=== PATIENT | female | born 1965 | race Caucasian/White ===

== ENCOUNTER 2025-03-30 21:03 | Inpatient (IN) | payer OTHER, SELFPAY ==
[2025-03-30] VITALS (8 sets, daily range): BP systolic 100–141; BP diastolic 59–83
--- NOTE | 2025-03-30 15:39 | CON.NEURO ---
Addendum entered and electronically signed by Ridge Pardo MD 03/30/25 16:41:
Studies reviewed.
I have personally examined the patient. I reviewed and agree with the REGISTERED RADIOLOGIC TECHNOLOGIST's Note.
My addenda:
Awake, alert, interactive. No acute distress.
Speech intact.
Follows 2-step requests w/o difficulty. No tremor.
Extra-ocular movements grossly intact.
Facial movements full and symmetric. Hearing intact to normal conversational volume.
Normal UE movements bilaterally.
Neck: full ROM.
Chest: no dyspnea
Heart: no JVD
Ext: (-) Clubbing, (-) Cyanosis, (-) Edema
IMPRESSIONS/RECOMMENDATIONS:
Abrupt onset of left hemibody skin sensation change with subsequently found right 2.1 cm nearly isodense to brain tissue lesion producing mass effect
Lesion either represents glioma with edema or metastasis from previously diagnosed and treated colon cancer
Initiate dexamethasone 10 mg now and 4 mg every 6 hours
Urgent evaluation by neurosurgery outside of this hospital
Start levetiracetam without load as 500 mg twice a day as it is unclear whether or not the patient's symptomatology represents shift or focal onset seizures
We will order MRI of the brain with and without contrast although the patient would probably benefit from undergoing this testing at the next facility to which she will be transferred
D/W patient / family / nursing
All questions answered.
Will continue to follow as needed.
Original Note:
Documented by User: Arelis Smith NP 03/30/25 16:29
Neuro Assessment/Plan
Assessment
Patient is a left-handed 59 year old female with a past medical history of colon cancer 3 years ago and HLD presented to [facility] on 03/30/2025 for evaluation of left sided tingling and decreased sensation.
Head CT: Findings suspicious for an approximate 2.1 cm slightly high attenuation lesion in the right frontoparietal region, most likely a mass with some mild mass effect and minimal midline shift from [id number].
Plan
Impression: abrupt onset of left-sided tingling and decreased sensation most likely due to 2 cm right frontoparietal brain mass
-obtain brain MRI with and without contrast
-start Levetiracetam 500 mg BID
-give 10mg Decadron now and 4mg every 6 hours
-transfer to [place] [facility] to evaluate brain mass
All questions encouraged and answered, plan of care discussed with Dr. Pardo, nurse, Dr. Mahoney, patient and family
Consultation
Order
Date of Consultation: 03/30/25
Requesting Provider: hospitalist/Dr. Mahoney
Reason for Consult: stroke alert
Subjective/Objective
Subjective Data
Date of Service: March 30, 2025
Patient is a left-handed 59 year old female with a past medical history of colon cancer 3 years ago and HLD presented to [facility] on 03/30/2025 for evaluation of left sided tingling and decreased sensation. At 10 am was watching her grandchild and
pushing him in the stroller when she noticed LUE,LLE and left face tingling with decreased sensation. She thought she had a pinched nerve but symptoms persisted which prompted her ER visit. Denies vision changes, dizziness or headache. Denies chest
pain or SOB. Denies issues with speech or swallowing. Denies issues with bladder/bowel. Denies difficulty with ambulation or balance. She presented to ED as stroke alert. NIHSS 0, head CT suspicious for an approximate 2.1 cm slightly high
attenuation lesion in the right frontoparietal region, most likely a mass with some mild mass effect and minimal midline shift from [id number]. Her vital signs are stable.
Objective Data
Vital Signs
Temp Pulse Resp BP Pulse Ox
98.4 F 74 16 136/83 97
03/30/25 15:25 03/30/25 15:25 03/30/25 15:25 03/30/25 15:25 03/30/25 15:25
Patient Allergies
No Known Allergies Allergy (Verified 03/30/25 15:35)
CVA Assessment
Onset of Stroke Symptoms
Onset of symptoms known: Yes
Date of onset of symptoms: 03/30/25
Time of onset of symptoms: 10:00
Time pt last seen normal is known: Yes
Date last time pt seen normal: 03/30/25
Time last time pt seen normal: 10:00
NIH Stroke Score
Level of Consciousness: 0 - Alert
LOC Questions: 0-Answers both correctly
LOC Commands: 0-Performs both correctly
Best Horizontal Gaze: 0-Normal
Visual Deng: 0=Normal, no visual loss
Facial Palsy: 0=Normal, symmetrical
Motor - Right Arm: 0=No drift 10 seconds
Motor - Left Arm: 0=No drift 10 seconds
Motor - Right Le-No drift 5 seconds
Motor - Left Le-No drift 5 seconds
Limb Ataxia: 0-Absent
Sensation: 0-Normal
Best Language: 0-No aphasia
Dysarthria: 0-Normal
Extinction and Inattention: 0-No abnormality
NIH Total Score:: 0
Tenecteplase Contraindications
Inclusion and Exclusion criteria reviewed: Yes
IAT Contraindications: NIHSS < 6 and Imaging doesn't show large vessel occlusion as cause of stroke
Modified Lincoln Score (MRS)
-
Modified Valente Scale (mRS): No significant disability. Able to carry out usual activities.
Score: 1
Review of Systems
-
History Source: Patient
Constitutional: No Symptoms
EENT: No Symptoms Reported
Respiratory: No Symptoms
Cardiac: No Symptoms
Abdomen/GI: No Symptoms
Genitourinary: No Symptoms
Musculoskeletal: No Symptoms
Skin: No Symptoms
Neuro: Other (left sided tingling)
Endocrine: No Symptoms
Hematologic / Lymphatic: No Symptoms
Allergy / Immunology: No Symptoms
Physical Exam
-
General: No Apparent Distress and Comfortable
HEENT: Normocephalic, Atraumatic and Anicteric
Neck: Full Range of Motion
Respiratory: No Dyspnea
Cardiac: No JVD
GI: Non-distended
Skin: Unremarkable
Extremities: No Clubbing, No Cyanosis and No Edema
Psych: Unremarkable
Extended Neurological Exam
Mood & Affect: Mood Unremarkable
Attention Span & Concentration: Awake, Alert and Interactive
Memory: Unremarkable
Tremor: Hand Tremor Absent
Involuntary Movement: None
Speech: Quality Unremarkable, Quantity Unremarkable and Rate of Production Unremarkable
Cranial Nerve II: Left Eye: Visual Deng Intact
Cranial Nerve II: Right Eye: Visual Deng Intact
Cranial Nerves III, IV, : Extraocular Movement: Extraocular Movement Full in all Directions
Cranial Nerve VII: Facial Symmetry: Normal Facial Symmetry
Cranial Nerve VIII: Hearing: Unremarkable Hearing to Normal Conversational Volume
Cranial Nerves IX, X: Palate Movement: Palate Elevation Symmetric
Cranial Nerve XI: Shoulder Shrug: Unremarkable
Muscle Strength, Overall: Full Throughout
Pronator Drift: No Drift in Upper Extremities and No Drift in Lower Extremities
Coordination: Apclyl-rvwh-hxhezc Testing Unremarkable and Reaches for Objects without Difficulty
Data Reviewed
-
CT Head: Report Reviewed and Image Reviewed
MRI Head: Ordered
Labs: Ordered
Reviewed with: Physician, Nurse, Patient and Family
Old Records: Summarized
Past History
Past History
ED Past Medical History: Cancer (colon cancer 3 years ago) and Hypercholesterolemia
Family/Social History
Tobacco: Non-smoker
Alcohol: None
Drug: None

Documented by User: Ridge Pardo MD 03/30/25 16:37
CVA Assessment
NIH Stroke Score
NIH Total Score:: 0
Modified Valente Score (MRS)
-
Score: 1
[2025-03-30 15:42] LABS: Glucose - Point of Care 98 mg/dl (70-99)
--- NOTE | 2025-03-30 15:58 | ED.CVA ---
History of Present Illness
General
Chief Complaint: CVA/TIA Symptoms
Source: patient and family
Exam Limitations: none
Time Seen by Provider: 03/30/25 15:35
Nursing documentation reviewed up to this point in time: agreed with
Onset of Stroke Symptoms
Onset of symptoms known: Yes
Date of onset of symptoms: 03/30/25
Time of onset of symptoms: 10:00
History of Present Illness
History of Present Illness:
Patient presents to ED secondary to sudden onset of left shoulder, left arm, and left leg numbness sensation, starting around 10 AM this morning. Patient was already awake when her symptoms started. Patient denies neck pain. Denies headache.
Denies dizziness. Denies blurred vision. Denies difficulty with speech. Denies difficulty with ambulation. Denies previous history of similar symptoms.
Review of Systems
Review of Systems
Allergies reviewed?: Yes
All Other Systems: ROS reviewed and negative except as documented in HPI and ROS
Constitutional: Reports no symptoms
Respiratory: Reports no symptoms
Cardiac: Reports no symptoms
ABD/GI: Reports no symptoms
Musculoskeletal: Reports no symptoms
Skin: Reports no symptoms
Neurological: Reports numbness; Denies dizzy, headache or weakness
Phy Exam
Physical Exam
Physical Exam:
Physical Exam
General: mild distress, not acutely ill. afebrile
Head: nc/at. eomi
Neck: supple. normal range of motion.
Heart: s1/s2 regular rate and rhythm
Lungs: no acute respiratory distress. clear bilaterally
Abdomen: normal bowel sounds. not tender.
Neuro: alert and oriented x 3. no focal neurological deficits. normal speech
Skin: no rash
Psychiatric: well kept. interactive and cooperative
Extremities: no edema. no calf tenderness.
Course
Orders/Labs/Results
Orders:
Orders
03/30/25 Dinner
Regular
At Your Request: Full Participation
03/30/25 15:41
CT HEAD STROKE ALERT W/o Cont Urgent
Comment:
Reason For Exam: left sided numbness/tingling sensation
03/30/25 15:43
Electrocardiogram (*1) Urgent
Reason for Study: TIA/Stroke
EKG- Treatment ONCE
03/30/25 15:50
Levetiracetam Injectable [Keppra] 500 mg IV NOW STA
03/30/25 15:54
CRP [C-Reactive Protein] Routine
Comment: May add to blood in lab
Complete Blood Count/No Diff Urgent
Comprehensive Metabolic Panel Urgent
Erythrocyte Sed Rate Routine
Comment: may add to blood in lab
Ferritin Routine
Folate Routine
Comment: May add to blood in lab
Magnesium Urgent
TSH Reflex To Free T4 Routine
Comment: May add to blood in lab
Vitamin B12 Routine
Comment: May add to blood in lab or draw as routine
03/30/25 16:09
Dexamethasone Sod Phosphate [Decadron] 10 mg IV NOW STA
03/30/25 20:39
Admit/Transfer Patient As Directed
Co-Sign Provider:
Level of Care: Inpatient admission
Assign to:: Medical/Surgical
Physician / Group: lashawn milner
Diagnosis: new Brain mass
Reason for Hospitalization: new Brain mass
Expected length of stay greater than two midnights?: Yes
ELOS- Estimated Length of Stay in days: 3
I certify the patient meets the requirements for IP care: Yes
Code Status As Directed
Resuscitation Status: Full Code
NEUROLOGY CONSULT Routine
Consulting Provider: Ridge Pardo
Was physician already notified: Yes
Reason for consult: Left-sided numbness, new brain mass on CT
03/30/25 20:41
PRN Pain Medication Management As Directed
May give lesser potent ordered pain med per pt: Yes
preference::
Protocol:: Medication orders for pain may be administered in a
manner that supports deferring to patient preference
when the pt is:
- Requesting an ordered lesser potent pain medication.
Least to most potent pain medications are defined
as: acetaminophen < NSAID < tramadol < opioids
(morphine, oxycodone, hydromorphone).
- Requesting a lesser dose of the same medication IF
ORDERED.
- Requesting a less intrusive route of administration
if both routes are prescribed by the provider (PO <
IV).
03/30/25 21:36
Acetaminophen [Tylenol] 650 mg PO Q4HPRN PRN
03/30/25 21:36
Activity As Directed
Activity Level: As Tolerated
Pneumatic Compression Sleeves As Directed
Type: Knee high
Vital Signs As Directed
Frequency: Per unit guidelines
Pt Eval And Treat Routine
Activity Level: As Tolerated
DX Deep Vein Thrombosis Video Routine
03/31/25 00:00
Dexamethasone Sod Phosphate [Decadron] 4 mg IV Q6H
03/31/25 06:00
Complete Blood Count/With Diff IN AM
Comprehensive Metabolic Panel IN AM
03/31/25 08:00
Levetiracetam Injectable [Keppra] 500 mg IV Q12
03/31/25 18:00
Rosuvastatin Calcium [Crestor] 5 mg PO QPM
04/01/25 06:00
Complete Blood Count/With Diff IN AM
Comprehensive Metabolic Panel IN AM
04/02/25 06:00
Complete Blood Count/With Diff IN AM
Comprehensive Metabolic Panel IN AM
Abnormal Lab Results
03/30/25
15:54
BUN 18 H mg/dl
(7-17)
Glucose 101 H mg/dl
(70-99)
03/30/25 15:54
03/30/25 15:54
Vital Signs
Initial and Last Documented VS:
Initial Vital Signs
Temp Pulse Resp BP Pulse Ox
98.4 F 74 16 136/83 97
03/30/25 15:25 03/30/25 15:25 03/30/25 15:25 03/30/25 15:25 03/30/25 15:25
Last Documented Vital Signs
Temp Pulse Resp BP Pulse Ox
98.4 F 81 19 114/83 96
03/30/25 15:25 03/30/25 22:33 03/30/25 22:33 03/30/25 21:00 03/30/25 22:33
MDM/Problems Addressed
MDM/Problems Addressed:
Stroke alert activated during triage. Patient evaluated at bedside by Dr. Pardo. CT head ordered. Unfortunately, CT head reveals what appears to be likely right-sided mass.
Dr. Pardo recommends transfer to neurosurgery service for further evaluation, especially in light of midline shift. Dexamethasone ordered. Patient and family agree with plan to transfer to [facility].
Transfer consent on the chart.
Discussed with [facility], , who agreed to accept transfer.
Unfortunately, received information from [facility] As such, request that patient to be admitted at [facility] tonight with plan to transfer patient when bed
becomes available.
.
*Pulse Oximetry
SaO2: 97
Oxygen Mode of Delivery: Room air
Patient hypoxic: no
*Critical Care Note
Total Time (30-74mins, 75-104mins- exclusive of procedures): Not Applicable
ED Attending Note
-
Portions of this chart may have been created with voice recognition software.� Occasional wrong word or��sound alike� substitutions may have occurred due to the inherent limitations of voice recognition software.
Discharge Plan
Departure
Patient Disposition: Admit
Date of Disposition: 03/30/25
Time of Disposition: 16:32
Admit to: Telemetry
Presentation/result/management discussed w/ accepting MD/DO: Hospitalist
Discharge Problem:
Mass of brain
Interventions
Interventions:
*Risk Screen - Suicide Last Done: 03/30/25 15:37
*General Assessment Last Done: 03/30/25 15:37
*Neglect/Abuse Screening Last Done: 03/30/25 15:37
*ED- Fall Risk Assessment Last Done: 03/30/25 15:37
*ED COVID-19 Vaccine History Last Done: 03/30/25 15:37
ED- Pulmonary Assessment Last Done: 03/30/25 15:46
ED- Neurological Assessment Last Done: 03/30/25 20:08
ED- Cardiac Assessment Last Done: 03/30/25 15:53
ED Swallowing Screen Last Done: 03/30/25 19:50
[2025-03-30] MEDS: KEPPRA 500 MG IV (16:14)
[2025-03-30 16:20] LABS: Hematocrit 40.5 % (37.0-47.0); Hemoglobin 13.4 g/dL (12.0-16.0); Mean Corp Hgb Conc. 33.1 g/dL (33.0-37.0); Mean Corpuscular Volume 92.0 fL (81.0-99.0); Platelet Count 375 10^3/uL (130-400); Red Cell Dist. Width 13.2 % (11.5-14.5)
[2025-03-30] MEDS: DECADRON 10 MG IV (16:22)
[2025-03-30 16:26] LABS: ALT (SGPT) 22 U/L (0-35); AST (SGOT) 27 U/L (14-36); Albumin 4.9 g/dl (3.5-5.0); Alkaline Phosphatase 89 U/L (38-126); Blood Urea Nitrogen 18 mg/dl (7-17); Calcium 10.1 mg/dl (8.4-10.2); Carbon Dioxide 25 mmol/L (22-30); Chloride 103 mmol/L (98-107); Glucose 101 mg/dl (70-99); Magnesium 2.1 mg/dl (1.6-2.3); Potassium 3.8 mmol/L (3.5-5.1); Sodium 139 mmol/L (135-145); Total Protein 7.6 g/dl (6.3-8.2); eGFR > 60.00
[2025-03-30 16:46] LABS: C-Reactive Protein < 5.00 mg/L (0.0-10.00)
[2025-03-30 17:21] LABS: Ferritin 27.9 ng/ml (11.1-264.0)
[2025-03-30 17:52] LABS: Folate 8.2 ng/ml (2.76-20); Vitamin B12 327 pg/ml (239-931)
--- NOTE | 2025-03-30 19:58 | HPS.HSE ---
Family Physician
-
Family Physician: * NONE
Chief Complaint
-
Left arm numbness tingling, left leg numbness tingling
History of Present Illness
59-year-old female who states she was doing arm exercises with no weights for approximate 30 minutes she started feeling a tightening sensation in the back of her neck with tingling down her left arm. She then decided to take her grandchild whom
she was watching for a walk she reports she started feeling tingling down the left side of her arm and leg like [id number] which was getting worse she returned home and called her daughter who is a nurse who came over to the house I
recommended she go to the ER for evaluation. In the ER a stroke alert was called she was seen by neurology at bedside had stat CT showing new 2.1 cm right frontoparietal region mass patient reports on Sunday while getting her [employer] license
from [place] she had to retest her vision. She reports she was wearing her contacts and noticed that on the right side of the screen and the distance she was having difficulty reading the line however the person passed her. She denies headache,
current blurred vision, facial droop, bilateral upper or lower leg weakness, fever, chills chest pain, palpitations, cough, shortness of breath, abdominal pain, nausea, vomiting, diarrhea, urinary symptoms. She has Past medical history colon
cancer/polyp status post colectomy 2021, HLD, migraine headaches
Medical History
Past Medical History
Past Medical History: Reports Other
Additional Past Medical History:
colon cancer/polypectomy status post colectomy
HLD
migraine headaches
Past Surgical History: Reports Other
Additional Past Surgical History:
Colectomy secondary to colon cancer
Appendectomy
section
Social History
Tobacco: Non-smoker
Alcohol: None
Personal:
Living: With Family ()
Family History
Family History: Other (Maternal grandmother history of colon cancer and leukemia age 70 mother from complications of RSV, father prostate cancer)
Allergies / Home Medications
Allergies reflects when Allergies were last updated in [employer]
Home Medications with original date entered in [employer]
Allergy/Medication List:
Allergies
Allergy/AdvReac Type Severity Reaction Status Date / Time
No Known Allergies Allergy Verified 03/30/25 15:35
Home Medications
Lactobac no.2-Bifidobac no.1-S. thermo 112.5 billion cell capsule (Visbiome) 1 cap PO DAILY 03/30/25
[id number]-u-lrlgblxihafgv 400 unit tablet (Beano) 400 unit PO QPM 03/30/25
cinnamon bark 500 mg capsule (Cinnamon) 500 mg PO DAILY 03/30/25
ibuprofen 200 mg tablet (Advil) 400 mg PO DAILYPRN PRN MILD PAIN 03/30/25
milk thistle 150 mg capsule 150 mg PO QPM 03/30/25
rosuvastatin 5 mg tablet (Crestor) 5 mg PO QPM 03/30/25
Review of Systems
-
History Source: Patient and Family ( at bedside)
A 12 point ROS was completed and negative except as noted: Yes
Constitutional: Denies Fever or Chills
EENT: Denies Sore Throat or Runny Nose
Respiratory: Denies Cough or Trouble Breathing
Cardiac: Denies Chest Pain, Diaphoresis, Palpitations or Syncope
Abdomen/GI: Denies Abdominal Pain, Nausea, Vomiting, Diarrhea, Constipated or Bloody Stools
: Denies Dysuria, Frequency, Flank Pain, Incontinence, Difficulty Voiding or Urgency
Musculoskeletal: Denies Joint Pain or Edema
Skin: Denies Itching or Rash
Neurological: Reports Numbness (Left side arm, left leg); Denies Dizzy, Headache or Weakness
Endocrine: Reports No Symptoms
Hematologic/Lymphatic: Reports No Symptoms
Psych: Reports Calm
Physical Exam
Vital Signs
Vital Signs
Temp Pulse Resp BP Pulse Ox
98.4 F 82 16 100/59 96
03/30/25 15:25 03/30/25 19:45 03/30/25 19:45 03/30/25 19:00 03/30/25 19:45
Physical Exam
General: Conversant; No Pain, Fever or Chills
HEENT: NormoCephalic, Anicteric, Moist mucous membranes, PERRLA, [place] Conjunctivae, No Ptosis and Neck Nontender
Respiratory: Clear; No Wheezes, Rales or Rhonchi
Cardiac: S1/S2 and Regular Rhythm; No Murmur, Rub, Gallop or Peripheral Edema
Breast: Deferred by me
GI: Soft, Non Tender, Non Distended, Normal Bowel Sounds and No Hepatosplenomegaly
Rectal: Deferred by Provider
Genito-urinary: Deferred by me
Musculoskeletal: No Clubbing, No Cyanosis and No Edema
Skin: Warm and Dry; No Rash
Neuro: AO x 3, No Motor Deficits, Nonfocal/grossly intact, Cranial Nerves Intact, No Sensory Deficits and DTR's Intact & Symmetrical; No Slurred Speech, Facial Droop, Tremors or Sedated
Psych: Calm
Laboratory Results
-
03/30/25 15:54
03/30/25 15:54
Laboratory Results
Total Bilirubin 0.9 mg/dl (0.2-1.3) 03/30/25 15:54
AST 27 U/L (14-36) 03/30/25 15:54
ALT 22 U/L (0-35) 03/30/25 15:54
Alkaline Phosphatase 89 U/L (38-126) 03/30/25 15:54
Data Reviewed
-
CT Scan: Report Reviewed by me
Lab Data: Labs Reviewed by me
Impression/Plan
-
Impression/plan:
Admit to MedSurg
#New brain mass
-IV Decadron 10 mg now followed by Decadron 4 mg every 6 hours
-Keppra 500 mg loading then 500 mg IV every 12 hours
-Patient is excepted at [facility] Dr. Grey but no beds are available
CT head:Findings suspicious for an approximate 2.1 cm slightly high attenuation lesion in the right frontoparietal region, most likely a mass with some mild mass effect and minimal midline shift from [id number].
#Colon cancer/polyp status post small section colectomy 2021 with 22 negative lymph nodes
#HLD
Continue Crestor 5 mg every afternoon
#Migraine headaches patient reports has not had a migraine in greater than 10 years
Hold Advil
DVT prophylaxis
SCDs
Full code
--- NOTE | 2025-03-30 20:01 | W.PN.UPDATE ---
Update Note
Progress Note Update
Patient seen in conjunction with ANESTHESIOLOGIST ATTENDING. I agree with the findings and physical. I concur with assessment and plan unless stated otherwise.
This is a 59-year-old female with past medical history significant for hyperlipidemia who presents to the emergency department with sudden onset of left-sided numbness that started around 10 AM. There was no associated weakness, lightheadedness
dizziness palpitations or chest pain nausea vomiting or diaphoresis. He denied having any headache. He denied having any vertigo. He denied any prior such episodes.
In the emergency department she had a nonfocal logical exam.
Vital signs were stable to blood pressure was 100/60 pulse of 82 and satting 99% on room air. ECG shows a normal sinus rhythm at rate of 78 without any ischemic changes. Her troponin was negative. TSH was unremarkable. Her electrolytes BUN and
creatinine were all in the normal range. CBC was unremarkable. She had a CT of the head showing findings suspicious for an approximate 2.1 cm slightly high attenuation lesion in the right frontoparietal region most likely a mass with some mild
mass effect and minimal midline shift from right to left.
Assessment and plan
Symptoms and imaging consistent with a new intracranial mass with vasogenic edema and minimal to mild mass effect.
- Admit to [facility]
- MRI brain
- Started on IV Decadron continue with IV Decadron every 6 for vasogenic edema
- Keppra 500 mg twice daily
-Analgesics and antiemetics as needed
- Case was discussed with neurology, patient transferred to [place] (accepted by Dr. Grey) however she is going to be here pending availability of bed
DVT PPX - lovenox sq
Code Status - Full code
[2025-03-31] VITALS (7 sets, daily range): BP systolic 102–129; BP diastolic 65–88; BMI 22.2
[2025-03-31] MEDS: DECADRON 4 MG IV ×5 (00:01→23:20)
[2025-03-31 07:56] LABS: Hematocrit 41.6 % (37.0-47.0); Hemoglobin 13.7 g/dL (12.0-16.0); Mean Corp Hgb Conc. 32.9 g/dL (33.0-37.0); Mean Corpuscular Volume 90.8 fL (81.0-99.0); Nucleated Red Blood Cells % 0 %; Platelet Count 377 10^3/uL (130-400); Red Cell Dist. Width 13.1 % (11.5-14.5)
[2025-03-31 08:22] LABS: ALT (SGPT) 20 U/L (0-35); AST (SGOT) 24 U/L (14-36); Albumin 4.6 g/dl (3.5-5.0); Alkaline Phosphatase 86 U/L (38-126); Blood Urea Nitrogen 17 mg/dl (7-17); Calcium 10.1 mg/dl (8.4-10.2); Carbon Dioxide 24 mmol/L (22-30); Chloride 107 mmol/L (98-107); Estimated Creatinine Clearance 81 ml/min; Glucose 133 mg/dl (70-99); Potassium 4.5 mmol/L (3.5-5.1); Sodium 140 mmol/L (135-145); Total Protein 7.1 g/dl (6.3-8.2); eGFR > 60.00
--- NOTE | 2025-03-31 09:20 | W.PN.NEURO.1 ---
Addendum entered and electronically signed by Ridge Pardo MD 03/31/25 13:33:
Studies reviewed.
I have personally examined the patient. I reviewed and agree with the SCENIC ARTIST's Note.
My addenda:
Awake, alert, interactive. No acute distress.
Speech intact.
No tremor.
Extra-ocular movements grossly intact.
Facial movements full and symmetric. Hearing intact to normal conversational volume.
Normal UE movements bilaterally.
Neck: full ROM.
Chest: no dyspnea
Heart: no JVD
Ext: (-) Clubbing, (-) Cyanosis, (-) Edema
IMPRESSIONS/RECOMMENDATIONS:
Abrupt onset of left hemibody sensory change with prior history of colon cancer
Continue high-dose steroids in the form of dexamethasone after loading dose of 10 mg, continue 4 mg every 6 hours
Discontinue levetiracetam as it is not clear that the patient is having focal onset seizures at this time
Transfer to neurosurgically capable facility as the patient had mass effect on plain CT of head
Check MRI of brain if patient is not to be transferred immediately
D/W patient / family
All questions answered.
Will continue to follow peripherally.
Original Note:
Today's Communication / Plan
-
-obtain brain MRI with and without contrast as planned
-discontinue Levetiracetam 500 mg BID
-continue Decadron 4mg every 6 hours
-awaiting transfer to neurosurgery to evaluate brain mass, unable to go to [place] due to insurance
Neuro Assessment/Plan
Assessment
Patient is a left-handed 59 year old female with a past medical history of colon cancer 3 years ago and HLD presented to [facility] on 03/30/2025 for evaluation of left sided tingling and decreased sensation.
Head CT: Findings suspicious for an approximate 2.1 cm slightly high attenuation lesion in the right frontoparietal region, most likely a mass with some mild mass effect and minimal midline shift from [id number].
Brain MRI: pending
Plan
Impression: abrupt onset of left-sided tingling and decreased sensation most likely due to 2 cm right frontoparietal brain mass
-obtain brain MRI with and without contrast as planned
-discontinue Levetiracetam 500 mg BID
-continue Decadron 4mg every 6 hours
-awaiting transfer to neurosurgery to evaluate brain mass, unable to go to [place] due to insurance
All questions encouraged and answered, plan of care discussed with Dr. Pardo, nurse, Dr. Knox, patient and family
Subjective/Objective
Subjective Data
Date of Service: March 31, 2025
No acute overnight events. Patient is experiencing less tingling but still has decreased sensation to her left side. No new neurologic symptoms noted.
Objective Data
Vital Signs
Temp Pulse Resp BP Pulse Ox
97.8 F 61 16 112/69 99
03/31/25 07:37 03/31/25 07:37 03/31/25 07:37 03/31/25 07:37 03/31/25 07:37
Lab Results
03/31/25 07:37
03/31/25 07:37
Sodium 140 mmol/L (135-145) 03/31/25 07:37
Potassium 4.5 mmol/L (3.5-5.1) 03/31/25 07:37
BUN 17 mg/dl (7-17) 03/31/25 07:37
Glucose 133 mg/dl (70-99) H 03/31/25 07:37
Calcium 10.1 mg/dl (8.4-10.2) 03/31/25 07:37
Vitamin B12 327 pg/ml (239-931) 03/30/25 15:54
Patient Allergies
No Known Allergies Allergy (Verified 03/30/25 15:35)
Physical Exam
-
General: No Apparent Distress and Comfortable
HEENT: Normocephalic, Atraumatic and Anicteric
Neck: Full Range of Motion
Respiratory: No Dyspnea
Cardiac: No JVD
GI: Non-distended
Skin: Unremarkable
Extremities: No Clubbing, No Cyanosis and No Edema
Psych: Unremarkable
Extended Neurological Exam
Mood & Affect: Mood Unremarkable
Attention Span & Concentration: Awake, Alert and Interactive
Memory: Unremarkable
Tremor: Hand Tremor Absent and Head Tremor Absent
Involuntary Movement: None
Speech: Quality Unremarkable, Quantity Unremarkable and Rate of Production Unremarkable
Cranial Nerve VII: Facial Symmetry: Normal Facial Symmetry
Cranial Nerve VIII: Hearing: Unremarkable Hearing to Normal Conversational Volume
Cranial Nerves IX, X: Palate Movement: Palate Elevation Symmetric
Cranial Nerve XI: Shoulder Shrug: Unremarkable
Muscle Strength, Overall: Full Throughout
Coordination: Reaches for Objects without Difficulty
[2025-03-31] MEDS: VITAMIN B-12 100 MCG PO (09:43)
--- NOTE | 2025-03-31 12:32 | CM ---
Addendum entered by Esha Loredo RN 03/31/25 15:36:
UR obtained information from [employer] # [id number] at [place] that hospital to hospital auth was not required . Spoke with Liliya at [facility]
provided Hospital to hospital number [phone]. Informed Liliya this is a higher level of care transfer.
Spoke with Klaudia at [facility] to inform her patient will need at transport when bed available.Could be any time of day. Address to [facility] provided. Klaudia placed on will call list .
Family updated.
Addendum entered by Esha Loredo RN 03/31/25 14:14:
[facility] requested auth . Transfer information provided to [facility] RN .
Spoke with transfer line Liliya [phone] she has CM # and floor number.
[address] [facility] [id number]
[address] Luke darby I [phone] # [phone]
Transfer line [phone] fax [phone].
Family is aware of plan and in agreement .
PLAn Transport to [facility] in [place] when bed ready.
Original Note:
Alert awake oriented patient who lives with Jewel in a 1 story home with 1 step to enter.She is independent in driving and all ADLs. She has recently moved to [place] with [employer] [facility] insurance. Insurance coverage is in [place] . CM
director assisted in obtaining [place] hospital in [facility] which was provided to . Awaiting bed at [facility] receiving MD Dr Luke Darby. completed transfer and transport forms.Ambulance transportation.
No adaptive devices
NO VN/SNF hx
pharmacy [facility] [address] [place] [address] Vital
PLAN To [facility] when bed ready
--- NOTE | 2025-03-31 13:19 | W.PN.HOSP.TC ---
Today's Communication/Plan
-
transfer to [facility] - Dr Luke Darby [facility] has accepted pt.
Assessment / Plan
Assessment / Plan
CT head:Findings suspicious for an approximate 2.1 cm slightly high attenuation lesion in the right frontoparietal region, most likely a mass with some mild mass effect and minimal midline shift from [id number].
# Right fronto-temporal lobe mass
-IV Decadron 10 mg now followed by Decadron 4 mg every 6 hours
-Patient was given IV Keppra which has been discontinued
-Patient initially accepted by [facility] neurosurgery for emergent transfer although patient has [id number] insurance and now patient has been accepted by [facility] neurosurgeon Dr. Luke Darby,
-maintain on neuro check
#Colon cancer/polyp status post small section colectomy 2021 with 22 negative lymph nodes
-no reported issues after initial sx.
#HLD
Continue Crestor 5 mg every afternoon
#Migraine headaches patient reports has not had a migraine in greater than 10 years
Hold Advil
DVT prophylaxis -SCDs
Full code
Anticipated Discharge: Today
Subjective/Interval History
-
Date of Service: March 31, 2025
Resting comfortable in bed
No reported issues overnight
Objective Data
-
Labs:
Laboratory Results
03/31/25
07:37
WBC 7.8
Hgb 13.7
Hct 41.6
Plt Count 377
Sodium 140
Potassium 4.5
Chloride 107
Carbon Dioxide 24
BUN 17
Creatinine 0.6
Glucose 133 H
Calcium 10.1
Total Bilirubin 0.7
AST 24
ALT 20
Alkaline Phosphatase 86
Vital Signs:
Vital Signs
Temp Pulse Resp BP Pulse Ox
97.8 F 61 16 112/69 99
03/31/25 07:37 03/31/25 07:37 03/31/25 07:37 03/31/25 07:37 03/31/25 07:37
Review of Systems
-
Respiratory: Reports No Symptoms
Cardiac: Reports No Symptoms
Abdomen/GI: Reports No Symptoms
Physical Exam
-
General: Negative Respiratory Distress
HEENT: Negative Oxygen
Neuro: Awake, Alert, Oriented and No Motor Deficits
[2025-03-31] MEDS: CRESTOR 5 MG PO (17:25)
--- NOTE | 2025-04-01 00:06 | PTCARENOTE ---
Pt being transferred to [facility] in [place] [facility]. Report called to Juana SOLIS @ [phone]. Pt left via stretcher at approximately 0000.
--- NOTE | 2025-04-01 07:43 | W.DCSUMMARY ---
Discharge Summary
Discharge Data
Date of Admission: 03/30/25
Date of Discharge: 03/31/25
-
Pending Results: No
Hospital Course
Discharging Physician : Dr Miguel Knox
Disposition : Transferred to [place], [place].
Primary care physician : Unknown
Principal Discharge diagnosis :
Right frontotemporal mass
Chronic Discharge diagnosis :
History of cancerous colon polyp s/p resection
Hyperlipidemia
Hospital Course :
Patient is 59-year-old female with history of cancerous polyp s/p resection and hyperlipidemia came in with new onset of left upper extremity tingling and numbness. Last Sunday patient was in [facility] having her license transferred to [place] and
on vision exam patient noticed having some difficulty reading some of the words on distant right side of the screen. In the day of the ER visit patient was having some new onset of left upper extremity and neck tingling sensation. Patient came to
ER for further evaluation in ER initially a stroke alert was called. CT head was done which showed a right frontoparietal region 2.1 cm mass with surrounding edema. Patient was given IV Decadron 10 mg in the ER and was started on further
maintenance dose. Patient was also given Keppra empirically although there was no clear reported seizure-like activity. Neurology evaluated patient and on imaging there was sign of midline shift, neurology recommended an emergent neurosurgical
evaluation. Patient was initially planned to be transferred to [facility] although due to insurance reason patient opted to be transferred to [facility] in [place]. Patient was transferred
to [facility] under care of Dr. Luke sanchez/neurosurgeon.
Important imaging findings :
None
Procedure findings :
None
Discharge Plan
-
Patient Disposition: [facility]
Condition: Fair
Discharge Orders:
Discharge Patient (As Directed); Ordered 03/31/25
Ordered By: Miguel Knox
Discharge Date and Time
Discharge Date/Time: 04/01/25 00:20
Print Language: SOU[place] AFR[place]
== END 2025-04-01 00:20 | disposition short-term general hospital (02) | DRG 54 ==
LOC: 3 WEST ACU 21:03
PROVIDERS: Clinical Nurse Specialist Family Health; ADMITTING PHYSICIAN Internal Medicine; ATTENDING PHYSICIAN Hospitalist; CONSULT PHYSICIAN Psychiatry & Neurology Neurology; EMERGENCY PHYSICIAN Emergency Medicine
DX: C71.3 Malignant neoplasm of parietal lobe (principal); G93.6 Cerebral edema; D43.0 Neoplasm of uncertain behavior of brain, supratentorial; E78.00 Pure hypercholesterolemia, unspecified; G43.909 Migraine, unspecified, not intractable, without status migrainosus; Z90.49 Acquired absence of other specified parts of digestive tract; Z85.038 Personal history of other malignant neoplasm of large intestine; Z79.899 Other long term (current) drug therapy; R20.2 Paresthesia of skin
CPT/HCPCS: 70450; 80053; 82607; 82728; 82746; 82962; 83735; 84443; 85025; 85027; 85652; 86140; 93005; 96374; 96375; 99285